=== PATIENT | male | born 1950 | race Caucasian/White ===

== ENCOUNTER → 2023-07-06 06:52 | Outpatient (CLI) | payer MEDICARE, SELFPAY ==
--- NOTE | ~2023-07-06 | MR_ITS ---
EXAMINATION: MR knee LT wo con DATE: 07/06/2023 07:28 INDICATION: Left knee pain and swelling. Unspecified internal derangement of left knee. TECHNIQUE: Magnetic resonance imaging (MRI) of the left knee was performed without intravenous contra st. Sequences included axial PD-weighted FS FSE, coronal PD-weighted FSE and PD-weighted FS FSE, sagi ttal PD-weighted FSE, and sagittal T2-weighted FS FSE. COMPARISON: None. FINDINGS: Medial compartment: Medial meniscus is normal. Medial compartment cartilage is normal. Lateral compartment: Lateral meniscus is normal. Lateral compartment cartilage is normal. Patellofemoral compartment: There is shallow partial-thickness cartilage loss of patellar medial facet. Trochlear cartilage is no rmal. Ligaments and tendons: The anterior cruciate ligament is normal. There is a partial tear of posterior cruciate ligament jose acterized by enlargement and increased signal intensity. Medial collateral ligament is normal. There are changes of prior sprain of fibular collateral ligament characterized by thickening and increased signal intensity proximally. There is mild patellar tendinopathy. Fluid: There is a small knee joint effusion. There is a small Suarez's cyst. There is mild prepatellar and hickey perficial infrapatellar bursitis. Osseous/other: There is edema-like marrow signal intensity in distal femur at the attachment of medial head of gastr ocnemius tendon. IMPRESSION: 1. Mild patellar chondrosis. 2. Partial tear of posterior cruciate ligament. 3. Small knee joint effusion. 4. Small Suarez's cyst. Reviewed, dictated and finalized at location A.
== END ==
PROVIDERS: PCP Internal Medicine; Visit Provider Internal Medicine
DX: M23.92 Unspecified internal derangement of left knee (principal); M25.462 Effusion, left knee; M22.8X2 Other disorders of patella, left knee; S83.522A Sprain of posterior cruciate ligament of left knee, initial encounter; M71.22 Synovial cyst of popliteal space [Baker], left knee
CPT/HCPCS: 73721